=== PATIENT | female | born 1945 | race Caucasian/White ===

== ENCOUNTER 2023-12-18 05:17 | Inpatient (IN) ==
[2023-12-18] MEDS: ALBUT/IPRATROP 3MG/0.5MG NEB 3 ML VIAL NEB STA (05:59)
[2023-12-18 06:06] LABS: Basophils # (auto) 0.07 K/uL (0.00-0.20); Basophils % (auto) 0.4 %; Eosinophils # (auto) 0.03 K/uL (0.00-0.50); Eosinophils % (auto) 0.2 %; Hematocrit (blood only) 41.3 % (37.0-47.0); Hemoglobin 14.2 g/dl (12.0-16.0); Immature Granulocytes # (auto) 0.08 K/uL (0.01-0.20); Immature Granulocytes % (auto) 0.5 %; Lymphocytes # (auto) 2.28 K/uL (1.20-3.40); Lymphocytes % (auto) 13.7 %; Mean Corpuscular Hemoglobin 29.3 pg (25.0-34.0); Mean Corpuscular Hgb Conc 34.4 g/dL (32.0-36.0); Mean Corpuscular Volume 85.3 fL (80.0-100.0); Mean Platelet Volume 9.6 fL (9.4-12.4); Monocytes # (auto) 1.08 K/uL (0.11-0.59); Monocytes % (auto) 6.5 %; Neutrophils # (auto) 13.16 K/uL (1.40-6.50); Neutrophils % (auto) 78.7 %; Platelet Count 303 K/uL (130-400); RDW Coefficient of Variation 13.3 % (11.5-14.5); RDW Standard Deviation 41.4 fL (36.4-46.3); Red Blood Count 4.84 M/uL (4.20-5.40)
[2023-12-18 06:15] LABS: Albumin Globulin Ratio 1.4 (0.9-2); Albumin Level 4.2 gm/dl (3.4-5.0); BUN Creatinine Ratio 26.7 (10-20); Calcium 9.7 mg/dl (8.6-10.3); Creatinine Clr Calc Pharmacy 42.2 ml/min; Est GFR (African American) 50.5 ml/min; Est GFR (Non-African American) 43.6 ml/min; Globulin 3.1 gm/dl (2.5-4.0); Potassium 3.3 mmol/L (3.5-5.1); Total Protein 7.3 gm/dl (6.0-8.3)
[2023-12-18 06:26] LABS: Troponin I High Sensitivity 190.3 pg/ml (0-14)
[2023-12-18] MEDS: SODIUM CHLORIDE 0.9% 1,000 ML IV ONE (06:27)
[2023-12-18] MEDS: AMPICILLIN/SULBACTAM SOD 3,000 MG in SODIUM CHLOR 0.9% MINI-B 100 ML IV STA (06:37)
--- NOTE | 2023-12-18 06:41 | Emergency Department Note ---
Impression & Plan Hypoxia, Shortness of breath, Neck pain, Elevated lactic acid level, Elevated troponin ED Provider Note NAME: BRANT MARTIN AGE: 78 SEX: F : 1945 ARRIVES VIA: Walk-In INFORMANT: Patient ED PROVIDER(S): Kwasi You DO CHIEF COMPLAINT: Shortness of breath HPI: Patient is a 78-year-old female with a past medical history of hypertension, hyperlipidemia that presents the ER for a tightness in her throat. She notes that this started late last night. Has been fairly constant. She noticed some shortness of breath yesterday. She denies any headache or change in vision. No cough or congestion. No dysuria, urgency, or frequency. No belly pain. No nausea, vomiting, or diarrhea. She feels as though something stuck in the left side of her throat. ADDITIONAL HISTORY OBTAINED: Per HPI Chronic Medical/Social Conditions Affecting Care: Per HPI PAST MEDICAL HISTORY:See Below PAST SURGICAL HISTORY:See Below FAMILY HISTORY:See Below SOCIAL HISTORY:See Below HOME MEDICATIONS:See Below ALLERGIES:See Below VITALS:See Below PHYSICAL EXAMINATION: GENERAL: Sitting up in bed, alert, well appearing, well nourished, no distress, non-toxic EYE EXAM: normal conjunctiva. OROPHARYNX: mucous membranes are moist NECK: supple, no nuchal rigidity, no adenopathy, non-tender LUNGS: Clear to auscultation. Normal chest wall mechanics HEART: +GENOVEVA, S1 normal and S2 normal ABDOMEN: abdomen soft, non-tender, normo-active bowel sounds, no masses, no rebound or guarding. UPPER EXTREMITIES: upper extremities are grossly normal. LOWER EXTREMITIES: No pitting edema. Calves are equal bilaterally NEURO EXAM: Normal sensorium, cranial nerves II-XII grossly intact, normal speech, no gross weakness of arms, no gross weakness of legs. MEDICAL DECISION MAKING: Patient is a 78-year-old female who presents the ER for shortness of breath associated with tightness in her neck on the left side. IV was established blood work was obtained. Orders were placed prior to my arrival including blood work, IV fluids and IV antibiotics. Labs showed a leukocytosis of 16,000. No significant anemia. BMP with hyponatremia 130. Mild hypokalemia 3.3. Troponin was elevated at 198. Patient was hypoxic and was on 4 L nasal cannula on my evaluation. BNP was elevated at 370. Lipase normal. Viral panel was pending. X-ray was suggestive of CHF. Patient had already received fluids and antibiotics. She was given aspirin. She was feeling better. Repeat EKG showed improvement of ST depressions in the lateral leads. Blood pressures were soft/marginal at high 90s/low 100. Discussed case with the hospitalist for further evaluation management treatment. Consults/Care Managements Discussions: Per [facility] Triage Nursing notes reviewed. Limited review of prior medical records performed Vital Signs: reviewed and remarkable for hypoxic Differential diagnosis: Cardiac ischemia, aortic dissection, pulmonary embolism, pneumothorax, pneumonia, pericarditis, myocarditis, esophageal rupture, GERD, cholecystitis, pancreatitis, musculoskeletal, as well as other pathologies. ER treatment provided: See below Diagnostics interpreted by me include EKG and cardiac monitoring as listed below: -Cardiac Monitoring: An order was placed for continuous cardiac monitoring. The monitor shows a rate of 95 with sinus rhythm. -ECG: Sinus rhythm rate of [address] depressions in the inferior leads as well as lateral leads QTc 414 -Laboratory studies:Interpreted by me as stated above in MDM and shown below. Imaging studies: Xrays: As interpreted by me: Portable AP upright 1 view of the chest shows pulmonary congestion CTs show: none Procedures:none Critical Care: I have personally spent 32 minutes of critical care time in the direct management of this patient. This includes bedside care, interpretation of diagnostic studies, and testing, discussion with consultants, patient, and family members, and other required patient management activities. This 32 minutes is in excess of all separately billable procedures. 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 > RUE limb restriction Surgical History (Updated 06/05/22 @ 07:06 by Yung North DO) History of sinus surgery History of colonoscopy History of lumpectomy of right breast 2009 > RUE limb restriction History of appendectomy History of cholecystectomy Family History Brother Diabetes Other Cancer Heart disease Hypertension Social History Smoking Status: Former smoker Second Hand Exposure: No; Do You Dip or Chew Tobacco: No; Hx Alcohol Use: Yes Hx Substance Use: No Preferred Language: Bengali Communication Ability: Effective Child Protective Services Social Worker Required: No Beliefs That Will Affect Care: None Current Living Situation: Spouse current occupational status: retired Feels Safe at Home: Yes Assistive Devices: Glasses Allergies Allergies Allergy/AdvReac Type Severity Reaction Status Date / Time latex Allergy Mild RASH Verified 06/05/22 06:24 naproxen Allergy Mild ANXIOUS, Verified 05/08/22 11:17 EDEMA Home Meds Home Medications Medication Instructions Recorded Confirmed albuterol sulfate 90 mcg/actuation 2 puff inhalation Q4 PRN Shortness 09/09/18 12/18/23 aerosol inhaler (Ventolin HFA) Of Breath Or Wheezing cholecalciferol (vitamin D3) 25 2,000 unit PO 5XWK 09/09/18 12/18/23 mcg (1,000 unit) capsule (Vitamin D3) fluticasone propionate 50 1 spray intranasal QAM 09/09/18 12/18/23 mcg/actuation nasal spray,suspension (Flonase Allergy Relief) hydrochlorothiazide 25 mg tablet 25 mg PO 5XWK 09/09/18 12/18/23 metoprolol succinate 25 mg 25 - 50 mg PO DIRECTED 09/09/18 12/18/23 tablet,extended release 24 hr (Toprol XL) spironolactone 25 mg tablet 50 mg PO QAM 09/09/18 12/18/23 (Aldactone) losartan 25 mg tablet 25 mg PO QPM 12/18/23 12/18/23 rosuvastatin 10 mg tablet 10 mg PO QPM 12/18/23 12/18/23 Previous Rx's Medication Instructions Recorded aspirin 81 mg tablet,delayed 81 mg PO BID 42 days #0 tabs 06/05/22 release Results & Data (ED) Vital Signs Vital Signs - 24 hr 12/18/23 05:23 12/18/23 05:36 12/18/23 05:37 Temperature 36.7 C Temperature Source Temporal Artery Scan Pulse Rate 100 H 97 H Pulse Rate [Apical] Respiratory Rate 20 Respiratory Effort / Characteristics Non-Labored Spontaneous Spontaneous Short of Breath Respiratory Depth Normal Respiratory Pattern Regular Blood Pressure 139/75 Blood Pressure [Right Arm] Blood Pressure Mean 96 Blood Pressure Mean [Right Arm] Blood Pressure Position Sitting Pulse Oximetry 91 Oxygen Delivery Method Room Air Oxygen Flow Rate Sepsis Recent Fever Within 48 Hours No Sepsis New/Unexplained Change in Mental Status N/A Sepsis Action Taken by Nursing No Action Required Oxygen Flow Rate - Titration Pulse Oximetry Post Tiitration 12/18/23 05:40 12/18/23 05:42 12/18/23 06:24 Temperature Temperature Source Pulse Rate 89 Pulse Rate [Apical] 95 H Respiratory Rate 19 20 Respiratory Effort / Characteristics Respiratory Depth Respiratory Pattern Blood Pressure Blood Pressure [Right Arm] Blood Pressure Mean Blood Pressure Mean [Right Arm] Blood Pressure Position Pulse Oximetry 88 L 94 95 Oxygen Delivery Method Nasal Cannula Nasal Cannula Oxygen Flow Rate 0 4 4 Sepsis Recent Fever Within 48 Hours Sepsis New/Unexplained Change in Mental Status Sepsis Action Taken by Nursing Oxygen Flow Rate - Titration 4 Pulse Oximetry Post Tiitration 93 12/18/23 06:31 12/18/23 06:34 12/18/23 07:00 Temperature Temperature Source Pulse Rate 84 Pulse Rate [Apical] 96 H Respiratory Rate 20 15 Respiratory Effort / Characteristics Respiratory Depth Respiratory Pattern Blood Pressure 125/69 Blood Pressure [Right Arm] 88/62 L 105/80 Blood Pressure Mean 87 Blood Pressure Mean [Right Arm] 70 88 Blood Pressure Position Pulse Oximetry 93 94 Oxygen Delivery Method Nasal Cannula Nasal Cannula Oxygen Flow Rate 4 4 Sepsis Recent Fever Within 48 Hours Sepsis New/Unexplained Change in Mental Status Sepsis Action Taken by Nursing Oxygen Flow Rate - Titration Pulse Oximetry Post Tiitration 12/18/23 08:00 Temperature Temperature Source Pulse Rate 84 Pulse Rate [Apical] Respiratory Rate 18 Respiratory Effort / Characteristics Respiratory Depth Respiratory Pattern Blood Pressure 127/79 Blood Pressure [Right Arm] Blood Pressure Mean 95 Blood Pressure Mean [Right Arm] Blood Pressure Position Pulse Oximetry 94 Oxygen Delivery Method Nasal Cannula Oxygen Flow Rate 4 Sepsis Recent Fever Within 48 Hours Sepsis New/Unexplained Change in Mental Status Sepsis Action Taken by Nursing Oxygen Flow Rate - Titration Pulse Oximetry Post Tiitration Laboratory Data 12/18/23 05:37 12/18/23 05:37 Lab Results 12/18/23 12/18/23 12/18/23 Range/Units 05:37 05:46 05:57 WBC 16.70 H (4.8-10.8) K/ul RBC 4.84 (4.20-5.40) M/uL Hgb 14.2 (12.0-16.0) g/dl Hct 41.3 (37.0-47.0) % MCV 85.3 (80.0-100.0) fL MCH 29.3 (25.0-34.0) pg MCHC 34.4 (32.0-36.0) g/dL RDW Std Deviation 41.4 (36.4-46.3) fL RDW Coeff of Kareem 13.3 (11.5-14.5) % Plt Count 303 (130-400) K/uL MPV 9.6 (9.4-12.4) fL Immature Gran % (Auto) 0.5 % Neut % (Auto) 78.7 % Lymph % (Auto) 13.7 % Elk % (Auto) 6.5 % Eos % (Auto) 0.2 % Baso % (Auto) 0.4 % Neut # (Auto) 13.16 H (1.40-6.50) K/uL Lymph # (Auto) 2.28 (1.20-3.40) K/uL Elk # (Auto) 1.08 H (0.11-0.59) K/uL Eos # (Auto) 0.03 (0.00-0.50) K/uL Baso # (Auto) 0.07 (0.00-0.20) K/uL Immature Gran # (Auto) 0.08 (0.01-0.20) K/uL Sodium 130 L (136-145) mmol/L Potassium 3.3 L (3.5-5.1) mmol/L Chloride 96 L (98-107) mmol/L Carbon Dioxide 21 (21-32) mmol/L Anion Gap 13 H (3-11) BUN 32 H (6-23) mg/dl Creatinine 1.20 (0.6-1.2) mg/dl Est Cr Clr Drug Dosing 42.2 ml/min Est GFR ( Amer) 50.5 ml/min Est GFR (Non-Af Amer) 43.6 ml/min BUN/Creatinine Ratio 26.7 H (10-20) Glucose 162 H (70-99(Fasting)) mg/dl Lactate 2.2 H* (0.4-2.0) mmol/L Calcium 9.7 (8.6-10.3) mg/dl Total Bilirubin 1.0 (0.2-1.0) mg/dl AST 25 (13-39) U/L ALT 21 (7-52) U/L Alkaline Phosphatase 70 (34-104) U/L Troponin I High Sens 190.3 H* (0-14) pg/ml B-Natriuretic Peptide 374 H (0-100) pg/ml Total Protein 7.3 (6.0-8.3) gm/dl Albumin 4.2 (3.4-5.0) gm/dl Globulin 3.1 (2.5-4.0) gm/dl Albumin/Globulin Ratio 1.4 (0.9-2) Lipase 18 (11-82) U/L SARS-CoV-2 (PCR) NEGATIVE (Negative) Influenza Type A (PCR) Negative (Neg) Influenza Type B (PCR) Negative (Neg) RSV (RT-PCR) Negative (Neg) 12/18/23 Range/Units 07:40 WBC (4.8-10.8) K/ul RBC (4.20-5.40) M/uL Hgb (12.0-16.0) g/dl Hct (37.0-47.0) % MCV (80.0-100.0) fL MCH (25.0-34.0) pg MCHC (32.0-36.0) g/dL RDW Std Deviation (36.4-46.3) fL RDW Coeff of Kareem (11.5-14.5) % Plt Count (130-400) K/uL MPV (9.4-12.4) fL Immature Gran % (Auto) % Neut % (Auto) % Lymph % (Auto) % Elk % (Auto) % Eos % (Auto) % Baso % (Auto) % Neut # (Auto) (1.40-6.50) K/uL Lymph # (Auto) (1.20-3.40) K/uL Elk # (Auto) (0.11-0.59) K/uL Eos # (Auto) (0.00-0.50) K/uL Baso # (Auto) (0.00-0.20) K/uL Immature Gran # (Auto) (0.01-0.20) K/uL Sodium (136-145) mmol/L Potassium (3.5-5.1) mmol/L Chloride (98-107) mmol/L Carbon Dioxide (21-32) mmol/L Anion Gap (3-11) BUN (6-23) mg/dl Creatinine (0.6-1.2) mg/dl Est Cr Clr Drug Dosing ml/min Est GFR ( Amer) ml/min Est GFR (Non-Af Amer) ml/min BUN/Creatinine Ratio (10-20) Glucose (70-99(Fasting)) mg/dl Lactate 1.9 (0.4-2.0) mmol/L Calcium (8.6-10.3) mg/dl Total Bilirubin (0.2-1.0) mg/dl AST (13-39) U/L ALT (7-52) U/L Alkaline Phosphatase (34-104) U/L Troponin I High Sens 167.7 H* (0-14) pg/ml B-Natriuretic Peptide (0-100) pg/ml Total Protein (6.0-8.3) gm/dl Albumin (3.4-5.0) gm/dl Globulin (2.5-4.0) gm/dl Albumin/Globulin Ratio (0.9-2) Lipase (11-82) U/L SARS-CoV-2 (PCR) (Negative) Influenza Type A (PCR) (Neg) Influenza Type B (PCR) (Neg) RSV (RT-PCR) (Neg) Administered Medications Discontinued Medications Albuterol (Albut/Ipratrop 3mg/0.5mg Neb 3 Ml Vial) 3 ml NEB NOW STA; Protocol Stop: 12/18/23 05:51 Last Admin: 12/18/23 05:59 Dose: 3 ml Documented By: LENNOX Aspirin (Aspirin Chew 324 Mg) 324 mg PO NOW STA Stop: 12/18/23 06:44 Last Admin: 12/18/23 06:45 Dose: 324 mg Documented By: LENNOX Furosemide (Furosemide Inj 20 Mg/2 Ml Vial) 20 mg IV ONE ONE Stop: 12/18/23 07:39 Last Admin: 12/18/23 08:07 Dose: 20 mg Documented By: OAC Ampicillin Sodium/Sulbactam Sodium 3,000 mg/ Sodium Chloride 100 mls @ 200 mls/hr IV NOW STA Stop: 12/18/23 06:19 Last Infusion: 12/18/23 07:08 Dose: Infused Documented By: Admin: 12/18/23 06:37 Dose: 200 mls/hr Documented By: LENNOX Sodium Chloride (Nss) 1,000 mls @ 999 mls/hr IV .Q1H1M ONE Stop: 12/18/23 07:22 Last Infusion: 12/18/23 07:32 Dose: Infused Documented By: Admin: 12/18/23 06:27 Dose: 999 mls/hr Documented By: LENNOX Potassium Chloride (Potassium Chloride Crtab 20 Meq Tabcr) 40 meq PO NOW STA Stop: 12/18/23 07:39 Last Admin: 12/18/23 07:57 Dose: Not Given Documented By: JOHN Imaging Data Radiologist's Impression: Chest X-Ray 12/18/23 05:28 XR chest 1V portable HISTORY: 78 years-old Female Chest pain, nonspecific COMPARISON: 05/13/2022 TECHNIQUE: AP view of the chest FINDINGS: Cardiac silhouette is enlarged. Pulmonary vascular congestion with interstitial coarsening. No pneumothorax. Small pleural effusions with mild bibasilar opacities. Unchanged right hemidiaphragmatic elevation. Bones appear grossly intact. IMPRESSION: 1. Cardiomegaly with mild pulmonary edema. 2. Small pleural effusions with mild bibasilar opacities favoring atelectasis. Pneumonitis could appear similarly. ACT 112: Negative or not required by law. The above report was generated using voice recognition software. It may contain grammatical, syntax or spelling errors. Electronically signed by: Ho Merida M.D. 12/18/2023 7:50 AM Discharge Plan Visit Data Chief Complaint: Shortness of Breath/Dyspnea Stated Complaint: SOB, THROAT ISSUES ED Provider: Kwasi You Discharge Problem: Hypoxia, Shortness of breath, Neck pain, Elevated lactic acid level, Elevated troponin Forms Stand Alone Forms: My [employer] Prescriptions Prescriptions: No Action spironolactone [Aldactone] 25 mg tablet 50 mg PO QAM hydrochlorothiazide 25 mg tablet 25 mg PO 5XWK metoprolol succinate [Toprol XL] 25 mg tablet extended release 24 hr 25 - 50 mg PO DIRECTED Rx Instructions: 25mg QAM, 50mg HS albuterol sulfate [Ventolin HFA] 90 mcg/actuation HFA aerosol inhaler 2 puff Inhalation Q4 PRN (Reason: Shortness Of Breath Or Wheezing) fluticasone propionate [Flonase Allergy Relief] 50 mcg/actuation spray,suspension 1 spray Intranasal QAM cholecalciferol (vitamin D3) [Vitamin D3] 1,000 unit Capsule 2,000 unit PO 5XWK aspirin 81 mg Tablet,Delayed Release (Dr/Ec) 81 mg PO BID 42 Days Qty: 0 0RF losartan 25 mg tablet 25 mg PO QPM rosuvastatin 10 mg tablet 10 mg PO QPM Referrals Referrals: Gavino Orantes MD [Primary Care Provider] -
[2023-12-18 06:42] LABS: Influenza A virus by PCR Negative (Neg); Influenza B virus by PCR Negative (Neg); RSV by PCR Negative (Neg); SARS CoV2 RNA(COVID-19) Ceph NEGATIVE (Negative)
[2023-12-18] MEDS: ASPIRIN CHEW 324 MG PO STA (06:45)
--- NOTE | 2023-12-18 07:40 | History & Physical Report ---
Date of Service December 18, 2023 Assessment & Plan (1) Mitral regurgitation: (2) Acute hypoxic respiratory failure: (3) Pulmonary edema: Plan Ms. Abdi is a 78 year old woman/gentleman with past medical history remarkable for myxomatous mitral valve disease, HTN, and prediabtes who presented to [facility] ED due to shortness of breath and found to be in acute hypoxic respiratory failure. Initial concern for admission was pneumonia, but presentation not consistent with infection. Given history of mitral insufficiency, ECHO ordered and cardiology consult placed. #Acute hypoxic respiratory failure #Acute Heart failure with preserved EF 2/2 severe mitral insufficiency & flail leaflet #Myxomatous mitral valve, mitral valve insufficiency #Liable hypertension Concern for heart failure/pulm edema rather than infectious process based upon clinical presentation CXR with cardiomegaly, edema, effusions BNP c/w HF at 347 s/p IV unasyn in ED Ordered IV lasix 20mg now Infectious work up pending -Will follow procal, but low suspicion for pneumonia (no cough, fevers, chills, etc) ECHO ordered -Revealed severe MR, severe prolapse with flail segment Cardiology consult -Hold metoprolol XL iso acute mitral regurg -Diuresis as hemodynamics allow -Hold losartan 25mg 2/2 hypotension -Hold HCTZ 25mg and Spironolactone 25mg iso hyponatremia -Continue ASA Titrate O2 prn Transfer initiated to [facility] for CTS eval for valve replacement #Elevated Troponin concern for heart failure given pulm edema. #Hypokalemia Replace PO #Hyponatremia iso HCTZ and spironolactone, hold both Trend BMP #Leukocytosis 16.70, no ifectious symptoms, potentially reactive Repeat CBC in am #Chronic Rhinitis #Mild asthma Flonase qam CTM #HLD Continue on rosuvastatin 10mg DVT lovenox Admit med tele pending transfer to [facility] for CTS eval Admission and Anticipated Discharge Date Admission Date: Time spent evaluating patient, direct bedside care, chart review, placing orders, interpretation of diagnostic studies, discussion with consultants, patient, and family members, as well as other required patient management activities is 60 minutes. History of Present Illness Chief Complaint: SOB Primary Care Provider: Gavino Orantes MD Ms. Abdi is a 78 year old woman/gentleman with past medical history remarkable for myxomatous mitral valve disease, HTN, and prediabtes who presented to [facility] ED due to shortness of breath and found to be in acute hypoxic respiratory failure. Patient states she has experienced neck pain for last few days and now subseuqent shortness of breath. She denies overt chest pain, palpitations, fevers, chills, sputum production or other acute concerns. Patient states that she has felt as if she is gaining weight, roughly 10 lbs in last month with out any notable dietary changes. This has prompted her to increase her HCTZ with no improvement. Labs with WBC of 16.7, potassium 3.3, lactic acid 2.2, troponin 190.3, BNP 374 Flu/RSV/COVID negative In the ED, vitals were notable for BP of 90s, HR of 90s and O2 sat of mid90s on 4L Imaging revealed cardiomegaly, pulm edema, pleural effusions EKG stable compared to prior but abnormal with ST wave abnormality in inferior and lateral leads ED interventions: unasyn Consultants: Cardiology Patient to be admitted to [facility] for further evaluation and management of acute respiratory failure. Allergies Allergy/AdvReac Type Severity Reaction Status Date / Time latex Allergy Mild RASH Verified 06/05/22 06:24 naproxen Allergy Mild ANXIOUS, Verified 05/08/22 11:17 EDEMA Home Medications Medication Instructions Recorded Confirmed Type albuterol sulfate 90 mcg/actuation 2 puff inhalation Q4 PRN Shortness 09/09/18 12/18/23 History aerosol inhaler (Ventolin HFA) Of Breath Or Wheezing cholecalciferol (vitamin D3) 25 2,000 unit PO 5XWK 09/09/18 12/18/23 History mcg (1,000 unit) capsule (Vitamin D3) fluticasone propionate 50 1 spray intranasal QAM 09/09/18 12/18/23 History mcg/actuation nasal spray,suspension (Flonase Allergy Relief) hydrochlorothiazide 25 mg tablet 25 mg PO 5XWK 09/09/18 12/18/23 History metoprolol succinate 25 mg 25 - 50 mg PO DIRECTED 09/09/18 12/18/23 History tablet,extended release 24 hr (Toprol XL) spironolactone 25 mg tablet 50 mg PO QAM 09/09/18 12/18/23 History (Aldactone) aspirin 81 mg tablet,delayed 81 mg PO BID 42 days #0 tabs 06/05/22 12/18/23 Rx release losartan 25 mg tablet 25 mg PO QPM 12/18/23 12/18/23 History rosuvastatin 10 mg tablet 10 mg PO QPM 12/18/23 12/18/23 History Past Med/Surg History Medical History (Updated 12/18/23 @ 15:11 by Marlene Gonzalez MD) Nasal polyps had polypectomy Osteoarthritis Migraine Hx visual aura MVP (mitral valve prolapse) Mild bileaflet MVP, moderate MR per 03/06/21 echo Asthma Controlled, no recent inhaler use 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 > RUE limb restriction Surgical History (Updated 06/05/22 @ 07:06 by Yung North DO) History of sinus surgery History of colonoscopy History of lumpectomy of right breast 2009 > RUE limb restriction History of appendectomy History of cholecystectomy Family History Brother Diabetes Other Cancer Heart disease Hypertension Social History Smoking Status: Former smoker Second Hand Exposure: No; Do You Dip or Chew Tobacco: No; Hx Alcohol Use: Yes Hx Substance Use: No Preferred Language: [place] Communication Ability: Effective 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 Head: (-) headache, (-) dizziness. Eye: (-) blurring of vision, (-) double vision, (-) redness. Ear: (-) hearing loss, (-) discharge, (-) vertigo Nose: (-) discharge, (-) bleeding, (-) congestion, (-) post nasal drip. Throat: (++) sore throat, (-) hoarseness of voice, (-) odynophagia. Cardiovascular: (-) chest pain, (-) palpitations, (-) syncope, + orthopnea, (-) PND, + leg swelling. Respiratory: ++ shortness of breath, (-) cough, (-) wheezing, (-) hemoptysis. Neuro: (-) weakness in extremities, (-) numbness, (-) tingling, (-) tremor. Gastrointestinal: (-) belly pain, (-) belly distension, (-) nausea, (-) vomiting, (-) diarrhea, (-) constipation, (-) na, (-) hematemesis, (-) hematochezia, (-) bowel incontinence Genitourinary: (-) hematuria, (-) dysuria, (-) polyuria, (-) hesitancy, (-) frequency, (-) urinary incontinence. Musculoskeletal: (-) myalgia, (-) arthralgia. Skin: (-) rashes. Endocrine: (-) heat/cold intolerance. Psychiatry: (-) depression, (-) hallucination. Physical Exam Physical Exam: GENERAL APPEARANCE: AxOx4, generally well-appearing F no acute distress. HEENT: NC, AT. MMM. EOMI, clear conjunctiva, oropharynx clear. NECK: Supple without lymphadenopathy. No stiffness or restricted ROM. no tenderness to palpation HEART: Normal rate and regular rhythm, ++GENOVEVA LUNGS: bilateral crackles ABDOMEN: Soft, nontender, nondistended with good bowel sounds heard. BACK: No CVAT, no obvious deformity. EXTREMITIES: Without cyanosis, clubbing, trace edema around ankles NEUROLOGICAL: Grossly nonfocal. Alert and oriented, moving all 4 extremities. CN not formally tested but appear grossly intact. Observed to ambulate with normal gait. Skin: Warm and dry without any rash. Results & Data Results & Data Vital Signs (Past 12 Hours) Vital Signs Temp Pulse Pulse Resp BP BP Pulse Ox 12/18/23 07:00 84 15 125/69 94 12/18/23 06:34 105/80 12/18/23 06:31 96 H 20 88/62 L 93 12/18/23 06:24 89 20 95 12/18/23 05:42 95 H 19 94 12/18/23 05:40 88 L 12/18/23 05:36 97 H 12/18/23 05:23 36.7 C 100 H 20 139/75 91 O2 Del Method O2 Flow Rate 12/18/23 07:00 12/18/23 06:34 12/18/23 06:31 Nasal Cannula 4 12/18/23 06:24 Nasal Cannula 4 12/18/23 05:42 Nasal Cannula 4 12/18/23 05:40 0 12/18/23 05:36 12/18/23 05:23 Room Air Laboratory Results Short CBC 12/18/23 Range/Units 05:37 WBC 16.70 H (4.8-10.8) K/ul Hgb 14.2 (12.0-16.0) g/dl Hct 41.3 (37.0-47.0) % Plt Count 303 (130-400) K/uL BMP 12/18/23 05:37 Sodium 130 L Potassium 3.3 L Chloride 96 L Carbon Dioxide 21 BUN 32 H Creatinine 1.20 Glucose 162 H Calcium 9.7 Liver Function 12/18/23 Range/Units 05:37 Total Bilirubin 1.0 (0.2-1.0) mg/dl AST 25 (13-39) U/L ALT 21 (7-52) U/L Alkaline Phosphatase 70 (34-104) U/L Albumin 4.2 (3.4-5.0) gm/dl Medications Administered Home Medications Medication Instructions Recorded Confirmed Last Taken albuterol sulfate 90 mcg/actuation 2 puff inhalation Q4 PRN Shortness 09/09/18 06/05/22 Unknown aerosol inhaler (Ventolin HFA) Of Breath Or Wheezing cholecalciferol (vitamin D3) 25 2,000 unit PO 5XWK 09/09/18 06/05/22 06/04/22 10:00 mcg (1,000 unit) capsule (Vitamin D3) fluticasone propionate 110 2 puff inhalation BID PRN 09/09/18 06/05/22 Unknown mcg/actuation HFA aerosol inhaler WORSENING ASTHMA SYMPTOMS (Flovent HFA) fluticasone propionate 50 1 spray intranasal QAM 09/09/18 06/05/22 06/05/22 05:40 mcg/actuation nasal spray,suspension (Flonase Allergy Relief) hydrochlorothiazide 25 mg tablet 25 mg PO 5XWK 09/09/18 06/05/22 06/04/22 10:00 metoprolol succinate 25 mg 25 - 50 mg PO DIRECTED 09/09/18 06/05/22 06/05/22 05:40 tablet,extended release 24 hr (Toprol XL) pravastatin 40 mg tablet 80 mg PO HS 09/09/18 06/05/22 06/04/22 21:00 (Pravachol) spironolactone 25 mg tablet 50 mg PO QAM 09/09/18 06/05/22 06/04/22 10:00 (Aldactone) acetaminophen 500 mg tablet 500 mg PO HS 04/29/22 06/05/22 06/04/22 23:00 aspirin 81 mg tablet,delayed 81 mg PO BID 42 days #0 tabs 06/05/22 06/05/22 06/04/22 10:00 release celecoxib 200 mg capsule (Celebrex) 200 mg PO BID #28 caps 06/05/22 Unknown oxycodone-acetaminophen 5 mg-325 1 tab PO Q6H PRN pain #30 tabs 06/05/22 Unknown mg tablet (1) Mitral regurgitation Cardiac valve disease etiology: nonrheumatic Qualified Code(s): I34.0 - Nonrheumatic mitral (valve) insufficiency (3) Pulmonary edema Chronicity: acute Qualified Code(s): J81.0 - Acute pulmonary edema
--- NOTE | 2023-12-18 07:51 | XRay Report ---
XR chest 1V portable HISTORY: 78 years-old Female Chest pain, nonspecific COMPARISON: 05/13/2022 TECHNIQUE: AP view of the chest FINDINGS: Cardiac silhouette is enlarged. Pulmonary vascular congestion with interstitial coarsening. No pneumo thorax. Small pleural effusions with mild bibasilar opacities. Unchanged right hemidiaphragmatic elev ation. Bones appear grossly intact. IMPRESSION: 1. Cardiomegaly with mild pulmonary edema. 2. Small pleural effusions with mild bibasilar opacities favoring atelectasis. Pneumonitis could appe ar similarly. ACT 112: Negative or not required by law. The above report was generated using voice recognition software. It may contain grammatical, syntax o r spelling errors. Electronically signed by: Ho Merida M.D. 12/18/2023 7:50 AM
[2023-12-18] MEDS: POTASSIUM CHLORIDE CRTAB 20 MEQ TABCR PO STA (07:57)
[2023-12-18] MEDS: FUROSEMIDE INJ 20 MG/2 ML VIAL IV ONE ×2 (08:07→12:37)
[2023-12-18 08:38] LABS: Adenovirus PCR Not Detected (NotDetected); Bordetella parapertussis PCR Not Detected (NotDetected); Bordetella pertussis PCR Not Detected (NotDetected); Chlamydia pneumoniae PCR Not Detected (NotDetected); Coronavirus 229E PCR Not Detected (NotDetected); Coronavirus CoV-2 (COVID19)PCR Not Detected (NotDetected); Coronavirus HKU1 PCR Not Detected (NotDetected); Coronavirus NL63 PCR Not Detected (NotDetected); Coronavirus OC43PCR Not Detected (NotDetected); Human Metapneumovirus PCR Not Detected (NotDetected); Influenza A PCR Not Detected (NotDetected); Influenza B PCR Not Detected (NotDetected); Mycoplasma pneumoniae PCR Not Detected (NotDetected); Parainfluenza Virus 1 PCR Not Detected (NotDetected); Parainfluenza Virus 2 PCR Not Detected (NotDetected); Parainfluenza Virus 3 PCR Not Detected (NotDetected); Parainfluenza Virus 4 PCR Not Detected (NotDetected); Respiratory Syncytial VirusPCR Not Detected (NotDetected); Rhinovirus/Enterovirus PCR Not Detected (NotDetected)
[2023-12-18] MEDS ORDERED: ALBUTEROL HFA 8 GM INHALER INH PRN (09:22)
[2023-12-18] MEDS ORDERED: ACETAMINOPHEN 325 MG TAB PO PRN (09:22)
[2023-12-18] MEDS: POTASSIUM CHLORIDE PWD 20 MEQ PACK PO SCH (10:02)
[2023-12-18] MEDS: ASPIRIN 81 MG ECTAB PO SCH (10:06)
[2023-12-18] MEDS: ENOXAPARIN INJ 40 MG/0.4 ML SYR SQ SCH (10:07)
[2023-12-18] MEDS: FLUTICASONE PROPIONATE NA SPR 16 GM BTL NAE SCH (10:07)
[2023-12-18] MEDS: METOPROLOL SUCC 25MG EXT REL TAB PO SCH (10:10)
--- NOTE | 2023-12-18 11:27 | Cardiology Consultation ---
Date of Consultation December 18, 2023 Assessment & Plan (1) Mitral regurgitation: (2) Pulmonary edema: (3) Shortness of breath: (4) Hypoxia: (5) Elevated troponin: Plan Patient presenting with signs/symptoms concerning for acute decompensated HF, possibly due to valvular heart disease with small b/l pleural effusions, hypoxia and pulm vascular congestion on chest xray. Weight gain of about 5-10 lbs noted in the last few weeks. She received one dose of IV lasix 20 mg this morning. Repeat dose 20 mg this afternoon. Monitor I+O's. Supplement potassium. Echocardiogram ordered and pending to evaluate LV function, valvular disease. History of Moderate MR with MVP. Minimally elevated troponin noted. EKG is abnormal with ST wave abnormality in inferior and lateral leads. however this has been present for many years per outpatient EKG's Await echo. Symptoms not consistent with ACS. Currently she is chest pain free. However intermittent throat tightness may be anginal equivalent and may benefit from future ischemic work up once her fluid status has improved. Continue ASA, statin. BP is borderline low. Hold home meds including losartan, hctz, spironolactone. Further recommendations after additional diuretic therapy and review of echocardiogram. Case discussed with Dr. Do I spent a total of 50 minutes on the date of service in preparation, delivery, and documentation of the care provided to this patient, excluding any time spent in the performance of separately billed services. Lizeth Chang PA-C Department of Cardiology, [facility] This chart was completed in part utilizing Speech Voice Recognition Software. Grammatical errors, random word insertions, pronoun errors, and incomplete sentences are an occasional consequence of this system due to software limitations, ambient noise, and hardware issues. Any formal questions or concerns about the content, text, or information contained within the body of this dictation should be directly addressed to the provider for clarification. Supervising Physician Co-Signing Physician Notes I have reviewed the advance practitioner's documentation, and I agree with, and take responsibility for the plan of care. 78-year-old female with history of mitral valve prolapse and chronic, moderate mitral regurgitation presents to the emergency department with acute shortness of breath and throat discomfort. Diagnosed with flash pulmonary edema, acute CHF, with borderline hypotension. Bedside echocardiogram demonstrating severe posterior mitral leaflet prolapse with flail segment, severe mitral regurgit ation. Currently resting comfortably. No dyspnea at rest. Requiring 4 L supplemental oxygen. + orthopnea. PE: VSS with borderline hypotension. General: NAD, awake alert orient x 3. Heart: Regular rhythm, borderline tachycardia, 3/6 holosystolic murmur heard throughout the precordium. Lungs: + Rales at the bases bilateral. Extremities: No edema. A/P: 78-year-old female with acute CHF, flash pulmonary edema with echocardiographic evidence of mitral valve flail, severe mitral regurgitation. Continue IV diuresis as tolerated. Will avoid AV michael blocking agents at this time due to acute mitral regurgitation. Her echocardiogram otherwise demonstrates borderline hyperdynamic LV systolic function. Will arrange for transfer to tertiary care center and cardiothoracic surgery evaluation and transesophageal echocardiogram. I spent a total of 55 minutes on the date of service in preparation, delivery, and documentation of the care provided to this patient, excluding any time spent in the performance of separately billed services. History of Present Illness Reason for Consultation: Pulm edema; CHF Requesting Physician: Dr. Gonzalez Attending Physician: Dr. Do History of Present Illness Patient is a 78 year old female admitted to [facility] with worsening SOB and intermittent throat tightness. She describes several episodes of throat tightness since . First episode of throat tightness occurred last when she was drinking some juice and felt sudden onset throat spasm. She denies choking or aspirating on fluids. Over the next few days she had several other episodes of throat tightness, but not with drinking or eating. Non exertional. Lasts several seconds and resolves. She reports having these in the past and always felt they were possible esophageal spasms. Then last night she had worsening throat tightness along with sudden onset SOB. She contemplated coming to the ER, but she decided to try and sleep and see how she felt. She was not able to sleep all night. She would get signifinatly SOB trying to lay supine. She checked her O2 on home pulse ox and was in the 80's, so she decided to come to the ER. Upon arrival, her throat tightness had resolved. She was found to be hypoxic with pulmonary vascular congestion on chest xray. Started on IV lasix x 1 dose at 20 mg daily. BNP elevated. HS troponin also minimally elevated at 190 - then repeat at 167. EKG demonstrated NSR with ST depression in inferolateral leads, concerning for ischemia. However per review of outpatient EKG's this is unchnaged for many years. No recent stress test. WBC also elevated and started on antibiotics for potential infectious process contributing. She admits to weight gain over the last month. Possibly at least 5-10 lbs. She admits to not monitoring her salt/sodium content. She has not been exercising but denies exertional chest pain or dyspnea. She was scheduled next week for yearly echo at [facility]. At time of consult, patient feeling ok. Still requiring supplemental O2. Notes frequent urination with IV lasix this morning but dwindling now. Bp has been borderline low. Oral home meds - HCTZ, losartan, spironolactone held on admission. History includes: 1. 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 2. History of labile hypertension. 3. Hyperlipidemia. Allergies Allergy/AdvReac Type Severity Reaction Status Date / Time latex Allergy Mild RASH Verified 06/05/22 06:24 naproxen Allergy Mild ANXIOUS, Verified 05/08/22 11:17 EDEMA Home Medications Medication Instructions Recorded Confirmed Type albuterol sulfate 90 mcg/actuation 2 puff inhalation Q4 PRN Shortness 09/09/18 12/18/23 History aerosol inhaler (Ventolin HFA) Of Breath Or Wheezing cholecalciferol (vitamin D3) 25 2,000 unit PO 5XWK 09/09/18 12/18/23 History mcg (1,000 unit) capsule (Vitamin D3) fluticasone propionate 50 1 spray intranasal QAM 09/09/18 12/18/23 History mcg/actuation nasal spray,suspension (Flonase Allergy Relief) hydrochlorothiazide 25 mg tablet 25 mg PO 5XWK 09/09/18 12/18/23 History metoprolol succinate 25 mg 25 - 50 mg PO DIRECTED 09/09/18 12/18/23 History tablet,extended release 24 hr (Toprol XL) spironolactone 25 mg tablet 50 mg PO QAM 09/09/18 12/18/23 History (Aldactone) aspirin 81 mg tablet,delayed 81 mg PO BID 42 days #0 tabs 06/05/22 12/18/23 Rx release losartan 25 mg tablet 25 mg PO QPM 12/18/23 12/18/23 History rosuvastatin 10 mg tablet 10 mg PO QPM 12/18/23 12/18/23 History Patient History Medical History (Updated 12/18/23 @ 13:52 by Robert Do DO) Nasal polyps had polypectomy Osteoarthritis Migraine Hx visual aura MVP (mitral valve prolapse) Mild bileaflet MVP, moderate MR per 03/06/21 echo Asthma Controlled, no recent inhaler use 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 > RUE limb restriction Surgical History (Updated 06/05/22 @ 07:06 by Yung North DO) History of sinus surgery History of colonoscopy History of lumpectomy of right breast 2009 > RUE limb restriction History of appendectomy History of cholecystectomy Family History Brother Diabetes Other Cancer Heart disease Hypertension Social History Smoking Status: Former smoker Second Hand Exposure: No; Do You Dip or Chew Tobacco: No; Hx Alcohol Use: Yes Hx Substance Use: No Preferred Language: Fijian Communication Ability: Effective Shoe Handler Required: No Beliefs That Will Affect Care: None Current Living Situation: Spouse current occupational status: retired Feels Safe at Home: Yes Assistive Devices: Glasses Review of Systems Review of Systems: All systems reviewed & are unremarkable except as noted in HPI & below Physical Exam Constitutional: WD/WN, vitals as above no acute distress Neck: trachea midline, no thyromegaly Respiratory: no labored breathing Auscultation: + diminished lung sounds and + rales Cardiovascular: Rate/Rhythm: regular rate and regular rhythm Heart Sounds: + murmur (1/6 diastolic LSB; 3/6 at apex) Gastrointestinal (Abdomen): normal bowel sounds, soft, nontender, no hepatosplenomegaly Skin: no rashes, warm and dry Psychiatric: A+Ox3, euthymic affect Results & Data Vital Signs (Past 12 Hours) Vital Signs Temp Pulse Pulse Resp BP BP Pulse Ox 12/18/23 10:21 91 H 20 94/53 L 95 12/18/23 10:13 12/18/23 10:00 93 H 20 97/57 L 93 12/18/23 08:00 84 18 127/79 94 12/18/23 07:00 84 15 125/69 94 12/18/23 06:34 105/80 12/18/23 06:31 96 H 20 88/62 L 93 12/18/23 06:24 89 20 95 12/18/23 05:42 95 H 19 94 12/18/23 05:40 88 L 12/18/23 05:36 97 H 12/18/23 05:23 36.7 C 100 H 20 139/75 91 Pulse Ox O2 Del Method O2 Del Method O2 Flow Rate O2 Flow Rate 12/18/23 10:21 Nasal Cannula 4 12/18/23 10:13 93 Nasal Cannula 4 12/18/23 10:00 Nasal Cannula 4 12/18/23 08:00 Nasal Cannula 4 12/18/23 07:00 Nasal Cannula 4 12/18/23 06:34 12/18/23 06:31 Nasal Cannula 4 12/18/23 06:24 Nasal Cannula 4 12/18/23 05:42 Nasal Cannula 4 12/18/23 05:40 0 12/18/23 05:36 12/18/23 05:23 Room Air Laboratory Results Cardiac Enzymes 12/18/23 12/18/23 Range/Units 05:37 07:40 AST 25 (13-39) U/L Troponin I High Sens 190.3 H* 167.7 H* (0-14) pg/ml B-Natriuretic Peptide 374 H (0-100) pg/ml Coagulation 12/18/23 Range/Units 05:37 B-Natriuretic Peptide 374 H (0-100) pg/ml CBC 12/18/23 Range/Units 05:37 WBC 16.70 H (4.8-10.8) K/ul RBC 4.84 (4.20-5.40) M/uL Hgb 14.2 (12.0-16.0) g/dl Hct 41.3 (37.0-47.0) % Plt Count 303 (130-400) K/uL Neut # (Auto) 13.16 H (1.40-6.50) K/uL Lymph # (Auto) 2.28 (1.20-3.40) K/uL [place] # (Auto) 1.08 H (0.11-0.59) K/uL Eos # (Auto) 0.03 (0.00-0.50) K/uL Baso # (Auto) 0.07 (0.00-0.20) K/uL Comprehensive Metabolic Panel 12/18/23 Range/Units 05:37 Sodium 130 L (136-145) mmol/L Potassium 3.3 L (3.5-5.1) mmol/L Chloride 96 L (98-107) mmol/L Carbon Dioxide 21 (21-32) mmol/L BUN 32 H (6-23) mg/dl Creatinine 1.20 (0.6-1.2) mg/dl Glucose 162 H (70-99(Fasting)) mg/dl Calcium 9.7 (8.6-10.3) mg/dl AST 25 (13-39) U/L ALT 21 (7-52) U/L Alkaline Phosphatase 70 (34-104) U/L Total Protein 7.3 (6.0-8.3) gm/dl Albumin 4.2 (3.4-5.0) gm/dl Intake and Output 12/17/23 12/18/23 12/18/23 22:59 06:59 14:59 Intake Total 1100 / 1100 Balance 1100 / 1100 Intake: IV 1100 / 1100 Ampicillin/Sulbactam Sod 3,000 100 / 100 mg In Sodium Chlor 0.9% Mini-B 100 ml @ 200 mls/hr IV NOW STA Rx#:[id number] Sodium Chloride 0.9% 1,000 ml @ 1000 / 1000 999 mls/hr IV .Q1H1M ONE Rx#: [id number] Other: Weight 83.1 kg Weight Measurement Method Chair Scale Diagnostic Findings Telemetry reviewed: NSR, rare PVC. No arrhythmias. echo ordered - pending EKG reviewed: 12/18/23- NSR with inferior and lateral T wave abnormality. Compared with prior outpatient EKG's, no significant change noted Chest X-Ray 12/18/23 05:28 XR chest 1V portable IMPRESSION: 1. Cardiomegaly with mild pulmonary edema. 2. Small pleural effusions with mild bibasilar opacities favoring atelectasis. Pneumonitis could appear similarly. Prior outside data reviewed: Echocardiogram December 2022: Interpretation Summary The examination is adequate to evaluate the referral indication. The left ventricular cavity size is normal. The LV wall thickness is borderline increased (concentric). There is isolated basal septal hypertrophy with maximal thickness of 1.5 cm. The left ventricular wall motion is normal. The qualitative LV ejection fraction is 60-64% (normal). The mitral valve leaflets thickness is moderately increased. There is mild bileaflet mitral valve prolapse Moderate 2-3+ mitral regurgitation is present. The left atrium is normal sized. There is no evidence of pulmonary hypertension. In comparison to prior study of March 06, 2021, no significant change Prior EKG dated March 2023: NSR with ST depression in inferolateral leads. Medications Administered Current Inpatient Medications Acetaminophen (Acetaminophen 325 Mg Tab) 650 mg PO Q4H PRN PRN Reason: Pain or Fever Stop: 01/17/24 09:21 Albuterol (Albuterol Hfa 8 Gm Inhaler) 2 puffs INH Q4 PRN PRN Reason: Shortness Of Breath Or Wheezing Stop: 01/17/24 09:21 Aspirin (Aspirin 81 Mg Ectab) 81 mg PO DAILY [facility] Stop: 01/17/24 09:21 Last Admin: 12/18/23 10:06 Dose: Not Given Enoxaparin Sodium (Enoxaparin Inj 40 Mg/0.4 Ml Syr) 40 mg SQ Q24H [facility] Stop: 01/17/24 09:59 Last Admin: 12/18/23 10:07 Dose: 40 mg Fluticasone Propionate (Fluticasone Propionate Na Spr 16 Gm Btl) 1 sprays OVIDIO QAM [facility] Stop: 01/17/24 09:59 Last Admin: 12/18/23 10:07 Dose: 1 sprays Ampicillin Sodium/Sulbactam Sodium 3,000 mg/ Sodium Chloride 108 mls @ 200 mls/hr IV Q6H [facility] Stop: 12/20/23 12:59 Metoprolol Succinate (Metoprolol Succ 25mg Ext Rel Tab) 25 mg PO QAM [facility] Stop: 01/17/24 09:59 Last Admin: 12/18/23 10:10 Dose: Not Given Metoprolol Succinate (Metoprolol Succ 50mg Ext Rel Tab) 25 mg PO HS [facility] Stop: 01/17/24 20:59 Potassium Chloride (Potassium Chloride Pwd 20 Meq Pack) 40 meq PO BID [facility] Stop: 01/17/24 08:59 Last Admin: 12/18/23 10:02 Dose: 40 meq Rosuvastatin Calcium (Rosuvastatin Calcium 10 Mg Tab) 10 mg PO QPM [facility] Stop: 01/17/24 20:59 (1) Mitral regurgitation Cardiac valve disease etiology: nonrheumatic Qualified Code(s): I34.0 - Nonrheumatic mitral (valve) insufficiency (2) Pulmonary edema Chronicity: acute Qualified Code(s): J81.0 - Acute pulmonary edema
--- NOTE | 2023-12-18 12:16 | Electrocardiogram Report ---
Test Reason : Blood Pressure : / mmHG Vent. Rate : 101 BPM Atrial Rate : 101 BPM P-R Int : 136 ms QRS Dur : 090 ms QT Int : 320 ms P-R-T Axes : 064 045 001 degrees QTc Int : [address] depression, consider subendocardial injury Abnormal ECG When compared with ECG of 13-MAY-2022 13:23, ST now depressed in Lateral leads T wave inversion now evident in Inferior leads T wave amplitude has decreased in Anterolateral leads Confirmed by Olegario Hargrove ([id number]) on 12/18/2023 12:16:13 PM Referred By: REFERRED SELF Confirmed By:Olegario Hargrove
[2023-12-18] MEDS: AMPICILLIN/SULBACTAM SOD 3,000 MG in SODIUM CHLOR 0.9% MINI-B 100 ML IV SCH (12:37)
[2023-12-18 14:38] LABS: Appearance Urine Clear (Clear); Bilirubin Urine Negative (Negative); Blood Urine Negative (Negative); Color Urine Yellow; Glucose Urine UA Negative (Negative); Ketones Urine Negative (Negative); Leukocyte Esterase Urine Negative (Negative); Nitrite Urine Negative (Negative); Protein Urine Negative (Negative); Specific Gravity Urine 1.009 (1.000-1.030); Urobilinogen Urine Negative (Negative); pH Urine 5.5 (4.5-7.5)
--- OUTSIDE RECORDS SUMMARY | 2023-12-18 15:44 | External Medical Summary | Summary of Care ---
Author Name Unknown Organization [facility] Address [address] [place] [address] Phone [phone] Care Team Providers Care Leasing Agent Name Role Phone Gavino Orantes MD Primary Care Provider + Reason for Visit * Reason Onset Date Comments Appointment 11/12/2023 Encounter Details Date Type Department Care Team (Late st Contact Info) Description 11/12/2023 Telephone Gastroenterology, [facility] [address] [place] [address] Services, Scheduling [address] [place] [address] Appointment Allergies Active Allergy Reactions Criticality Noted Date Comments Environmental 05/30/2010 Hayfever Latex Rash 10/18/2008 Rash w/rubber gloves Naproxen 03/03/2002 jittery documented as of this encounter (statuses as of 11/29/2023) Medications Medication Sig Dispensed Refills Start Date End Date Status VITAMIN D 1000 UNIT PO CAPS twice daily 0 Active fluticasone (FLOVENT HFA) 110 MCG/ACT inhaler 2 puffs twice a day as needed for worsening or persistent asthma symptoms 1 Inhaler 5 07/10/2019 Active Amoxicillin 500 MG Oral Capsule (Amoxil)Indications:M oderate mitral regurgitation TAKE 4 CAPSULES BY MOUTH 1 HOUR BEFORE PROCEDURE. 4 Cap 5 12/23/2020 Active Aspirin 81 MG Oral Tablet Delayed Release Take 1 Tablet by mouth in the morning. 0 Active Tylenol 325 MG Oral Capsule (Acetaminophen) Take by mouth . 0 Acti ve Fluticasone Propionate 50 MCG/ACT Nasal Suspension (Flonase) Administer 1 [place] into each nostril in the morning and 1 [place] before bedtime. 16 g 11 09/29/2022 Active hydroCHLOROthiazide 25 MG Oral Tablet (Hydrodiuril)Indicati ons:Essential hypertension with goal blood pressure less than 140/90 Take one 5 days per week 75 Tablet 3 01/25/2023 Active Latanoprost 0.005 % Ophthalmic Solution (Xalatan) Start: 03/11/23 8:59:00 EDT, 3 mL, INSTILL 1 DROP INTO EACH EYE AT BEDTIME 0 03/11/2023 Active Metoprolol Succinate ER 25 MG Oral Tablet Extended Release 24 Hour (toPROL XL)Indications:Essent ial hypertension with goal blood pressure less than 140/90,Moderate mitral regurgitation Take 3 Tablets by mouth in the morning. 270 Tablet 3 04/07/2023 Active Spironolactone 25 MG Oral Tablet (Aldactone)Indication s:Essential hypertension with goal blood pressure less than 140/90 TAKE TWO TABLETS BY MOUTH ONCE DAILY 180 Tablet 1 07/01/2023 Active Losartan Potassium 25 MG Oral Tablet (Cozaar)Indications:H TN, goal below 140/90 Take 1 Tablet by mouth in the morning. 90 Tablet 2 09/07/2023 Active Rosuvastatin Calcium 10 MG Oral Tablet (Crestor)Indications: Mixed hyperlipidemia Take 1 Tablet by mouth in the morning. 90 Tablet 3 09/07/2023 Active documented as of this encounter (statuses as of 11/29/2023) Active Problems Problem Noted Date Diagnosed Date Mixed hyperlipidemia 09/14/2022 Prediabetes 03/17/2021 Overview: Per Prediabetes protocol Bilateral primary osteoarthritis of knee 019 Mixed rhinitis 06/03/2016 History of nasal polyp 06/03/2016 Intermittent asthma with reliever use up to twic e per week 06/03/2016 Family history of malignant melanoma 10/15/2014 Moderate mitral regurgitation 06/21/2013 Chronic cholecystitis 01/12/2013 History of breast cancer 05/20/2010 History of appendectomy 09/27/2008 HTN, goal below 140/90 12/18/2004 Mitral valve prolapse documented as of this encounter (statuses as of 11/29/2023) Resolved Problems Problem Noted Date Diagnosed Date Resolved Date History of chronic sinusitis 06/03/2016 08/03/2017 History of breast cancer 01/22/2016 Malignant neoplasm of female breast 01/13/2011 08/03/2017 Dyslipidemia, goal LDL below 160 07/17/2010 09/14/2022 Allergic rhinitis 12/17/2008 06/03/2016 ACTIVE CASE MANAGEMENT-Lunajoselito nona Baptiste [phone] 09/28/2008 11/29/2008 ADVANCE DIRECTIVE INFORMATION 05/18/2005 08/15/2021 Overview: Yes, Patient instructed to provide copy of advance directive for provider to review and to be scanned into Electronic Medical Record documented as of this encounter (statuses as of 11/29/2023) Immunizations Name Administration Dates Next Due COVID-19 mRNA, LNP-s, No Pre serve, 2-Dose Series (Moderna) 06/29/2021,10/30/2020,09/30/2020 COVID-19, MRNA-LNP, 23-24, P F, 30 MCG/0.3 mL, 12 YRS AND ABOVE, IM (PFIZER-Comirnaty) 06/04/2023 COVID-19, mRNA, LNP-s, PF, B ooster, 100mcg/0.5mg (Moderna) 12/11/2021 Covid-19, Mrna, Lnp-s, Pf, B ivalent, 30 Mcg, IM, 12 yrs and above (Pfizer) 06/23/2022 H1N1 2009 Influenza, IM 06/29/2009 Pneumococcal Conjugate Vacc, 13 Valent (Prevnar) 09/17/2014 Pneumococcal Polysaccharide PPV23 (Pneumovax) 06/15/2011 RSV Vac., Recomb, Adjuvant, PF,0.5 Ml (Arexvy) 05/03/2023 Season Influenza, Quad, PF, Adjuvanted, 65+ Yrs, IM (FLUAD) 06/04/2021,06/28/2020 Seasonal Influenza Virus Vac cine, Unspecified Formulation 07/19/2023,07/06/2020 Seasonal Influenza, Quadriva lent Hd (Fluzone Hd) 07/01/2022 Seasonal Influenza, Quadriva lent, No Preserve, IM 06/16/2017,06/29/2016 Seasonal Influenza, Split, I IV3, With Preserve, Inj 06/20/2014,06/13/2013,06/13/2013,06/16,06/15/2011,07/01/2010,06/11/2009 ,06/18/2008,07/14/2007,07/17/2006 Seasonal Influenza, Trivalen t, Adjuvanted, 65+ yrs 06/27/2019 Seasonal Influenza, Trivalen t, High Dose, No Preserve, IM 06/13/2018,06/17/2015 TDAP (age 10 and older)(Boostrix) 11/25/2022 TDAP (age 11 and older)(Adacel) 12/16/2007 Varicella Zoster Vaccine (Adult) 08/23/2013 Zoster Vaccine Recombinant (Shingrix) 12/23/2022 ,10/19/2022 documented as of this encounter Social History Tobacco Use Types Packs/Day Years Used Date Smoking Tobacco: Former Cigarettes 1 11 0 09/06/1968 - 09/06/1979 Smokeless Tobacco: Never Comments:no passive smoke Alcohol Use Standard Drinks/Week Comments Yes 0 (1 standard drink = 0.6 oz pure alcohol) beer or wine once or twice a week PHQ-2 Answer Date Recorded PHQ Adult Total Score 0 09/28/2023 Hunger Vital Sign Answer Date Recorded Within the past 12 months, y ou worried that your food would run out before you got the money to buy more. Never true 09/14/19 23 Within the past 12 months, t he food you bought just didn't last and you didn't have money to get more. Never true 09/14/2022 Sex and Gender Information Value Date Recorded Sex Assigned at Female 02/10/2019 10:27 AM EDT Gender Identity Female 02/10/2019 10:27 AM EDT Sexual Orientation Straight 02/10/2019 10 :27 AM EDT Job Start Date Occupation Industry Not on file Not on file Not on file documented as of this encounter Miscellaneous Notes * Telephone Encounter - Debbie Magallon OSA - 11/29/2023 11:10 AM EDT Pt is scheduled on 05/04 @ 11 AM with * Telephone Encounter - Nidhi Gabriel OSA - 11/12/2023 10:30 AM EST Patient is do for colonoscopy in Apr and is looking to scheduled documented in this encounter Plan of Treatment Upcoming Encounters Date Type Department Care Team (Latest Contact Info) Description 12/31/2023 9:30 AM EDT [facility] [address] [place] [address] 03/31/2024 10:00 AM EDT Office Visit General Internal Medicine [facility] Karen [place] [address] [place] [address] Gavino Orantes MD [address] [facility] [place] [address] 05/04/2024 11:45 AM EDT Hospital Encounter ENDO [facility], Endoscopy Room [facility] [address] [place] [phone] Rebekah Grimaldo MD [address] [place] [address] 05/04/2024 11:45 AM EDT - 05/04/2024 12:15 PM EDT Surgery ENDO [facility], Endoscopy Room [facility] [address] [place] [phone] Rebekah Grimaldo MD [address] [place] [address] COLONOSCOPY FLEXIBLE PROXIMAL DIAGNOSTIC 11/27/2024 9:45 AM EDT Office Visit Dermatology Carlotta Jones [place] [address] [place] [id number] Gavino Shay MD [address] [facility] [place] [address] Scheduled Procedures Name Priority Associated Diagnoses Date/Ti me COLONOSCOPY FLEXIBLE PROXIMA L DIAGNOSTIC Colon adenomas 05/04/2024 11:45 AM EDT Health Maintenance Due Date Last Done Comments COLONOSCOPY-EVERY 3 YRS AGES 18-100 04/29/2024 04/29/2021, 04/29/2021, 04/20/2018, Additional history exists Depression Screening 09/28/2024 09/28/2023 HbA1c 10/12/2024 10/12/2023, 07/0 03/2023, 09/08/2022, Additional history exists GFR 11/21/2024 11/22/2023, /0 02/2024, 03/12/2023, Additional history exists DXA Scan 02/15/2025 02/15/2018, 12/18/2010 Albumin/Creatinine Ratio 03/30/2025 03/30/2022, 06/06 DTaP,Tdap,and Td Vaccines (3 - Td or Tdap) 11/25/2032 11/25/2022, 12/16/2007 Pneumococcal Vaccine: 65+ Years Completed 09/17/2014, 06/15/2011 Zoster Vaccines Completed 12/23/2022, 10/07, 08/23/2013 COVID-19 Vaccine Completed 06/04/2023, , 12/11/2021, Additional history exists Influenza Vaccine (FLU shot) Completed , 07/01/2022, 06/04/2021, Additional history exists GARDASIL-HPV IMMUNIZATION SERIES Aged Out No longer eligible based on patient's age to complete this topic Hepatitis B Aged Out No longer eligi ble based on patient's age to complete this topic MENINGOCOCCAL (MENACTRA/MENVEO) Aged Out No longer eligible based on patient's age to complete this topic documented as of this encounter Medical Devices Not on filedocumented as of this encounter Care Teams Leasing Agent Relationship Specialty Start Date End Date Gavino Orantes MD [address] [place] [address] PCP - General Internal Medicine 06/24/21 documented as of this encounter
--- OUTSIDE RECORDS SUMMARY | 2023-12-18 15:44 | External Medical Summary | Summary of Care ---
Author Name Unknown Organization [facility] Address [address] [place] [address] Phone [phone] Care Team Providers Care Public Health Registrar Name Role Phone Gavino Orantes MD Primary Care Provider + Reason for Visit * Reason Comments Outpatient Testing Encounter Details Date Type Department Care Team (Late st Contact Info) Description 11/22/2023 9:30 AM EDT [facility] [address] [place] [id number] [place], [address] [place] [id number] Decreased GFR Allergies Active Allergy Reactions Criticality Noted Date Comments Environmental 05/30/2010 Hayfever Latex Rash 10/18/2008 Rash w/rubber gloves Naproxen 03/03/2002 jittery documented as of this encounter (statuses as of 11/22/2023) Medications Medication Sig Dispensed Refills Start Date [...] 50 MCG/ACT Nasal Suspension (Flonase) Administer 1 [place] into each nostril in the morning and 1 [place] before bedtime. 16 g 11 09/29/2022 Active [...] as of this encounter (statuses as of 11/22/2023) Active Problems Problem Noted Date Diagnosed Date [...] as of this encounter (statuses as of 11/22/2023) Resolved Problems Problem Noted Date Diagnosed Date Resolved Date History of chronic sinusitis 06/03/2016 08/03/2017 History of breast cancer 01/22/2016 Malignant neoplasm of female breast 01/13/2011 08/03/2017 Dyslipidemia, goal LDL below 160 07/17/2010 09/14/2022 Allergic rhinitis 12/17/2008 06/03/2016 ACTIVE CASE MANAGEMENT-[facility] [phone] 09/28/2008 11/29/2008 ADVANCE DIRECTIVE INFORMATION 05/18/2005 08/15/2021 Overview: Yes, Patient instructed to provide copy of advance directive for provider to review and to be scanned into Electronic Medical Record documented as of this encounter (statuses as of 11/22/2023) Immunizations Name Administration Dates Next Due COVID-19 [...] on file documented as of this encounter Plan of Treatment Upcoming Encounters Date Type Department Care Team (Late st Contact Info) Description 12/31/2023 9:30 AM EDT Cardiac Studies Cardiac Studies, [facility] [address] [facility] [place] [id number] 03/31/2024 10:00 AM EDT Office Visit General Internal Medicine [facility] [address] [facility] [place], [place] [address] Gavino Orantes MD [address] [facility] [place] [address] 11/27/2024 9:45 AM EDT Office Visit Dermatology [facility] [address] [facility] [place] [address] Gavino Shay MD [address] [facility] [place], [place] [address] Pending Results Name Type Priority Associated Diagnoses Date /Time BASIC METABOLIC PANEL Lab Routine Decreased GFR 11/22/2023 8:25 AM EDT Health Maintenance Due Date Last Done Comments COLONOSCOPY-EVERY 3 YRS AGES 18-100 04/29/2024 04/29/2021, 04/29/2021, 04/20/2018, Additional history exists Depression Screening 09/28/2024 09/28/2023 GFR 10/12/2024 10/12/2023, 07/0 03/2023, 10/30/2022, Additional history exists HbA1c 10/12/2024 10/12/2023, 07/0 03/2023, 09/08/2022, Additional history exists DXA Scan 02/15/2025 02/15/2018, [...] Not on filedocumented as of this encounter Visit Diagnoses Diagnosis Decreased GFR Nonspecific abnormal results of kidney function study documented in this encounter Care Teams Public Health Registrar Relationship Specialty Start Date End Date Gavino Orantes MD [address] [place] [address] PCP - General Internal Medicine 06/24/21 documented as of this encounter
--- OUTSIDE RECORDS SUMMARY | 2023-12-18 15:44 | External Medical Summary ---
Author Name Unknown Address Unknown Organization K09[facility] [place] [address] Laboratory Report Ordering Provider Test Date Status VEENA MASON 11/22/2023 08:25:33 Final Observation Date Value Abnormality Reference (Units ) Status BUN 11/22/2023 08:25:33 18 6-20 (mg/dL) Final Creatinine 11/22/2023 08:25:33 0.9 0.5-1.0 (mg/dL) Final Glomerular filtration rate/1.73 sq M.predicted [Volume Rate/Area] in Serum, Plasma or Blood by Creatinine-based formula (CKD-EPI) 11/22/2023 08:25:33 64 >=60 (mL/min) Final eGFR is calculated based on the CKD-EPI 2020 equation SODIUM 11/22/2023 08:25:33 137 135-146 (m mol/L) Final Potassium 11/22/2023 08:25:33 4.1 3.5-5.1 (m mol/L) Final Cl 11/22/2023 08:25:33 97 Below low normal 98- 107 (mmol/L) Final CO2 11/22/2023 08:25:33 29 22-32 (mmo l/L) Final Anion gap 11/22/2023 08:25:33 11 7-15 (mmol /L) Final Glucose 11/22/2023 08:25:33 132 Above high normal 70 -120 (mg/dL) Final Calcium 11/22/2023 08:25:33 10.0 8.4-10.2 ( mg/dL) Final Performing Location [facility] [place] [address]
--- NOTE | 2023-12-18 18:43 | Discharge Summary ---
Discharge Summary Date of Service December 18, 2023 Notes For Next Care Provider Medication Changes From Visit Holding metoprolol, losartan, HCTZ, spironolactone s/p IV lasix x 1 Admission HPI Per Admitting Provider Ms. Abdi is a 78 year old woman/gentleman with past medical history remarkable for myxomatous mitral valve disease, HTN, and prediabtes who presented to [facility] ED due to shortness of breath and found to be in acute hypoxic respiratory failure. Patient states she has experienced neck pain for last few days and now subseuqent shortness of breath. She denies overt chest pain, palpitations, fevers, chills, sputum production or other acute concerns. Patient states that she has felt as if she is gaining weight, roughly 10 lbs in last month with out any notable dietary changes. This has prompted her to increase her HCTZ with no improvement. Labs with WBC of 16.7, potassium 3.3, lactic acid 2.2, troponin 190.3, BNP 374 Flu/RSV/COVID negative In the ED, vitals were notable for BP of 90s, HR of 90s and O2 sat of mid90s on 4L Imaging revealed cardiomegaly, pulm edema, pleural effusions EKG stable compared to prior but abnormal with ST wave abnormality in inferior and lateral leads ED interventions: unasyn Consultants: Cardiology Patient to be admitted to [facility] for further evaluation and management of acute respiratory failure. Admission Exam Per Admitting Provider GENERAL APPEARANCE: AxOx4, generally well-appearing F no acute distress. HEENT: NC, AT. MMM. EOMI, clear conjunctiva, oropharynx clear. NECK: Supple without lymphadenopathy. No stiffness or restricted ROM. no tenderness to palpation HEART: Normal rate and regular rhythm, ++GENOVEVA LUNGS: bilateral crackles ABDOMEN: Soft, nontender, nondistended with good bowel sounds heard. BACK: No CVAT, no obvious deformity. EXTREMITIES: Without cyanosis, clubbing, trace edema around ankles NEUROLOGICAL: Grossly nonfocal. Alert and oriented, moving all 4 extremities. CN not formally tested but appear grossly intact. Observed to ambulate with normal gait. Skin: Warm and dry without any rash. Principal Dx & Hospital Course #1 = Principal Diagnosis (1) Mitral regurgitation: (2) Acute hypoxic respiratory failure: (3) Pulmonary edema: Plan Ms. Abdi is a 78 year old woman/gentleman with past medical history remarkable for myxomatous mitral valve disease, HTN, and prediabtes who presented to [facility] ED due to shortness of breath and found to be in acute hypoxic respiratory failure. Initial concern for admission was pneumonia, but presentation not consistent with infection. Given history of mitral insufficiency, ECHO ordered and cardiology consult placed. #Acute hypoxic respiratory failure #Acute Heart failure with preserved EF 2/2 severe mitral insufficiency & flail leaflet #Myxomatous mitral valve, mitral valve insufficiency #Liable hypertension Concern for heart failure/pulm edema rather than infectious process based upon clinical presentation CXR with cardiomegaly, edema, effusions BNP c/w HF at 347 s/p IV unasyn in ED Ordered IV lasix 20mg now Infectious work up pending -Will follow procal, but low suspicion for pneumonia (no cough, fevers, chi lls, etc) ECHO ordered -Revealed severe MR, severe prolapse with flail segment Cardiology consult -Hold metoprolol XL iso acute mitral regurg -Diuresis as hemodynamics allow -Hold losartan 25mg 2/2 hypotension -Hold HCTZ 25mg and Spironolactone 25mg iso hyponatremia -Continue ASA Titrate O2 prn Transfer initiated to [facility] for CTS eval for valve replacement #Elevated Troponin concern for heart failure given pulm edema. #Hypokalemia Replace PO #Hyponatremia iso HCTZ and spironolactone, hold both Trend BMP #Leukocytosis 16.70, no ifectious symptoms, potentially reactive Repeat CBC in am #Chronic Rhinitis #Mild asthma Flonase qam CTM #HLD Continue on rosuvastatin 10mg Discharge Exam GENERAL APPEARANCE: AxOx4, generally well-appearing F no acute distress. HEENT: NC, AT. MMM. EOMI, clear conjunctiva, oropharynx clear. NECK: Supple without lymphadenopathy. No stiffness or restricted ROM. no tenderness to palpation HEART: Normal rate and regular rhythm, ++GENOVEVA LUNGS: bilateral crackles ABDOMEN: Soft, nontender, nondistended with good bowel sounds heard. BACK: No CVAT, no obvious deformity. EXTREMITIES: Without cyanosis, clubbing, trace edema around ankles NEUROLOGICAL: Grossly nonfocal. Alert and oriented, moving all 4 extremities. CN not formally tested but appear grossly intact. Observed to ambulate with normal gait. Skin: Warm and dry without any rash. Updated Medication List Medication Instructions Recorded Confirmed Type albuterol sulfate 90 mcg/actuation 2 puff inhalation Q4 PRN Shortness 09/09/18 12/18/23 History aerosol inhaler (Ventolin HFA) Of Breath Or Wheezing cholecalciferol (vitamin D3) 25 2,000 unit PO 5XWK 09/09/18 12/18/23 History mcg (1,000 unit) capsule (Vitamin D3) fluticasone propionate 50 1 spray intranasal QAM 09/09/18 12/18/23 History mcg/actuation nasal spray,suspension (Flonase Allergy Relief) hydrochlorothiazide 25 mg tablet 25 mg PO 5XWK 09/09/18 12/18/23 History metoprolol succinate 25 mg 25 - 50 mg PO DIRECTED 09/09/18 12/18/23 History tablet,extended release 24 hr (Toprol XL) spironolactone 25 mg tablet 50 mg PO QAM 09/09/18 12/18/23 History (Aldactone) aspirin 81 mg tablet,delayed 81 mg PO BID 42 days #0 tabs 06/05/22 12/18/23 Rx release losartan 25 mg tablet 25 mg PO QPM 12/18/23 12/18/23 History rosuvastatin 10 mg tablet 10 mg PO QPM 12/18/23 12/18/23 History Hospital Stay Data Consultations 12/18/23 07:34 ED Decision to Admit Stat 12/18/23 09:22 Consult Cardiology Routine Pending Results Patient Have Any Pending Studies at Discharge: No Discharge Instructions Given to Patient (Per Discharging Provider) Ms. Abdi is a 78 year old woman/gentleman with past medical history remarkable for myxomatous mitral valve disease, HTN, and prediabtes who presented to [facility] ED due to shortness of breath and found to be in acute hypoxic respiratory failure. Initial concern for admission was pneumonia, but presentation not consistent with infection. Given history of mitral insufficiency, ECHO ordered and cardiology consult placed. ECHO revealed severe mitral prolapse with flail leaftlet. Plan for transfer to [facility] for eval with cardiothoracic surgery #Acute hypoxic respiratory failure #Acute Heart failure with preserved EF 2/2 severe mitral insufficiency & flail leaflet #Myxomatous mitral valve, mitral valve insufficiency #Liable hypertension Concern for heart failure/pulm edema rather than infectious process based upon clinical presentation CXR with cardiomegaly, edema, effusions BNP c/w HF at 347 s/p IV unasyn in ED Ordered IV lasix 20mg now Infectious work up pending -Will follow procal, but low suspicion for pneumonia (no cough, fevers, chills, etc) ECHO ordered -Revealed severe MR, severe prolapse with flail segment Cardiology consult -Hold metoprolol XL iso acute mitral regurg -Diuresis as hemodynamics allow -Hold losartan 25mg 2/2 hypotension -Hold HCTZ 25mg and Spironolactone 25mg iso hyponatremia -Continue ASA Titrate O2 prn #Elevated Troponin concern for heart failure given pulm edema. #Hypokalemia Replace PO #Hyponatremia iso HCTZ and spironolactone, hold both Trend BMP #Leukocytosis 16.70, no ifectious symptoms, potentially reactive Repeat CBC in am #Chronic Rhinitis #Mild asthma Flonase qam CTM #HLD Continue on rosuvastatin 10mg Total Time Total Time Spent Total Time Spent (In Minutes): 45
[2023-12-18] MEDS ORDERED: ROSUVASTATIN CALCIUM 10 MG TAB PO SCH (21:00)
[2023-12-18] MEDS ORDERED: METOPROLOL SUCC 50MG EXT REL TAB PO SCH (21:00)
--- NOTE | 2023-12-19 07:08 | Electrocardiogram Report ---
Test Reason : Blood Pressure : / mmHG Vent. Rate : 094 BPM Atrial Rate : 094 BPM P-R Int : 138 ms QRS Dur : 096 ms QT Int : 368 ms P-R-T Axes : 051 045 -52 degrees QTc Int : 460 ms Normal sinus rhythm Abnormal ECG When compared with ECG of 18-DEC-2023 07:05, T wave inversion now evident in Inferior leads Nonspecific T wave abnormality now evident in Anterior leads Confirmed by Jonathan Guillory ([id number]) on 12/19/2023 7:08:06 AM Referred By: REFERRED SELF Confirmed By:Michael Guillory
== END 2023-12-18 17:53 | disposition short-term general hospital (02) | DRG 306 ==
LOC: ED 05:17 → EDINP 08:08 → 2N 09:22